=== PATIENT | male | born 1995 | race African-American/Black ===

== ENCOUNTER → 2017-04-26 | Outpatient (CLI) | payer OTHER ==
[~2017-04-26] MED LIST: CLON-352 PO; CLON0.1T PO; CLON0.2T PO; DHA PO; FISH1000 PO; MONT10TA4 PO; ROLACHW21 CHEW; TAB-TAB PO
[2017-04-26 12:32] LABS: AUTOMATED NEUTROPHIL # 2.8 TH/MM3 (1.8-7.7); BASOPHIL % 0.6 % (0.0-2.0); EOSINOPHIL # 0.1 TH/MM3 (0-0.4); EOSINOPHIL % 2.1 % (0.0-4.0); HEMATOCRIT 41.8 % (39.0-51.0); HEMO FLAGS DIFF FINAL; LYMPH % 29.7 % (9.0-44.0); LYMPHOCYTE # 1.4 TH/MM3 (1.0-4.8); MEAN CELL VOLUME 85.9 FL (80.0-100.0); MEAN CORPUSCULAR HEMOGLOBIN 28.8 PG (27.0-34.0); MEAN CORPUSCULAR HGB CONC 33.5 % (32.0-36.0); MONO % 9.6 % (0.0-8.0); PLATELET COUNT 246 TH/MM3 (150-450); RED BLOOD COUNT 4.87 MIL/MM3 (4.50-5.90); RED CELL DISTRIBUTION WIDTH 12.8 % (11.6-17.2); WHITE BLOOD COUNT 4.8 TH/MM3 (4.0-11.0)
[2017-04-26 12:56] LABS: ALT (GPT) 95 U/L (12-78); ANION GAP 6 MEQ/L (5-15); AST (GOT) 27 U/L (15-37); BICARBONATE 28.2 MEQ/L (21.0-32.0); BLOOD UREA NITROGEN 13 MG/DL (7-18); CHLORIDE 104 MEQ/L (98-107); GLOMERULAR FILTRATION RATE 109 ML/MIN (>89); GLUCOSE,FASTING 80 MG/DL (74-99); POTASSIUM 3.7 MEQ/L (3.5-5.1); SODIUM (NA) 138 MEQ/L (136-145)
[2017-04-26 13:06] LABS: ALKALINE PHOSPHATASE 100 U/L (45-117); HDL CHOLESTEROL 58.2 MG/DL (40.0-60.0); LDL CHOLESTEROL 59 MG/DL (0-99); TOTAL BILIRUBIN ADULT 0.5 MG/DL (0.2-1.0)
[2017-04-26 13:33] LABS: BLOOD, URINE NEG (NEG); COMMENT (UR) CULT NOT INDICATED; CULTURE IF INDICATED CULT NOT INDICATED; GLUCOSE,URINE NEG (NEG); KETONE, URINE NEG (NEG); MUCUS URINE FEW /lpf (OCC); NITRITE,URINE NEG (NEG); URINE COLOR YELLOW (YELLW/STRAW)
== END ==
LOC: CLAB 11:46
PROVIDERS: ATTEND Internal Medicine
DX: E78.00 Pure hypercholesterolemia, unspecified (principal); I10 Essential (primary) hypertension; R73.01 Impaired fasting glucose; Z12.5 Encounter for screening for malignant neoplasm of prostate
CPT/HCPCS: 36415; 80053; 80061; 81001; 84443; 85025

== ENCOUNTER 2017-05-28 20:41 | Emergency (ER) | payer OTHER ==
[~2017-05-28] VITALS: Ht 177.8 cm; Wt 80.0 kg
[~2017-05-28 20:41] MED LIST changes: -CLON0.1T PO; -MONT10TA4 PO
[2017-05-28 20:42] VITALS: BP 117/73; PULSE 68; RESP 16; TEMP 98.5; O2SAT 96
[2017-05-28] MEDS ORDERED: MONT10TA4 PO (21:39)
[2017-05-28] MEDS ORDERED: CLON0.1T PO (21:39)
[2017-05-28 21:40] VITALS: BP 122/62; PULSE 69; RESP 21; O2SAT 98
--- NOTE | 2017-05-28 21:49 | PD ---
HPI Chief Complaint: Seizure Time Seen by Provider: 21:47 Travel History International Travel<30 days: No Contact w/Intl Traveler<30days: No Traveled to known affect area: No History of Present Illness HPI 21-year-old male with history of autism, one previous seizure about 10 years ago , presents to the ER today because mom states that he had a seizure that was witnessed by his brother. He had a short post ictal phase and is back to normal mental status according to mom. He currently denies any issues, pains, injuries, or any other symptoms. Modifying Factors: None Associated Signs & Symptoms: Seizure Risk Factors: One previous seizure episode PFSH Past Medical History Asthma: Yes Depression: Yes Cardiovascular Problems: No Developmental Delay: Yes (autistic) Diminished Hearing: No Genitourinary: No Medical other: Yes (SPEECH DISORDER) Neurologic: Yes ([facility]) Respiratory: Yes Immunizations Current: Yes Sickle Cell Disease: No Past Surgical History Oral Surgery: Yes (WISDOM TEETH REMOVED) Social History Alcohol Use: No Tobacco Use: No Substance Use: No Allergies-Medications (Allergen,Severity, Reaction): Coded Allergies: aluminum (Unverified Allergy, Severe, RASH, 05/28/17) amoxicillin (Unverified Allergy, Severe, Rash, 05/28/17) penicillin G (Unverified Allergy, Severe, ITCHY RASH, 05/28/17) Uncoded Allergies: OMNICEF (Allergy, Severe, RASH, 08/13/08) APPLE JUICE (Allergy, Mild, FOOD INTOLERANCE, 09/13/05) Reported Meds & Prescriptions Reported Meds & Active Scripts Active Reported Montelukast (Montelukast Sodium) 10 Mg Tab 10 Mg PO HS Clonidine (Clonidine HCl) 0.1 Mg Tab 0.1 Mg PO TID Review of Systems Except as stated in HPI: all other systems reviewed are Neg Physical Exam Narrative GENERAL: Well-developed young -[place] male patient currently in mild distress. Awake and oriented 3. SKIN: Focused skin assessment warm/dry. HEAD: Atraumatic. Normocephalic. EYES: Pupils equal and round. No scleral icterus. No injection or drainage. ENT: No nasal bleeding or discharge. Mucous membranes pink and moist. NECK: Trachea midline. No JVD. CARDIOVASCULAR: Regular rate and rhythm. No murmur appreciated. RESPIRATORY: No accessory muscle use. Clear to auscultation. Breath sounds equal bilaterally. GASTROINTESTINAL: Abdomen soft, non-tender, nondistended. Hepatic and splenic margins not palpable. MUSCULOSKELETAL: No obvious deformities. No clubbing. No cyanosis. No edema. NEUROLOGICAL: Awake and alert. No obvious cranial nerve deficits. Motor grossly within normal limits. Normal speech. PSYCHIATRIC: Appropriate mood and affect; insight and judgment normal. Data Data Last Documented VS Vital Signs Date Time Temp Pulse Resp B/P (MAP) Pulse Ox O2 Delivery O2 Flow Rate FiO2 05/28/17 22:08 99 Room Air 05/28/17 21:40 69 21 05/28/17 20:42 98.5 Orders Orders Complete Blood Count With Diff (05/28/17 21:47) Electrocardiogram (05/28/17 ) Ct Brain W/O Iv Contrast(Rout) (05/28/17 ) Blood Glucose (05/28/17 21:47) Ecg Monitoring (05/28/17 21:47) Iv Access Insert/Monitor (05/28/17 21:47) Oximetry (05/28/17 21:47) Comprehensive Metabolic Panel (05/28/17 21:47) Sodium Chloride 0.9% Flush (Ns Flush) (05/28/17 22:00) Labs Laboratory Tests Test 05/28/17 22:03 White Blood Count 6.8 TH/MM3 Red Blood Count 4.82 MIL/MM3 Hemoglobin 13.7 GM/DL Hematocrit 42.0 % Mean Corpuscular Volume 87.0 FL Mean Corpuscular Hemoglobin 28.4 PG Mean Corpuscular Hemoglobin Concent 32.7 % Red Cell Distribution Width 13.1 % Platelet Count 233 TH/MM3 Mean Platelet Volume 9.0 FL Neutrophils (%) (Auto) 64.1 % Lymphocytes (%) (Auto) 25.4 % Monocytes (%) (Auto) 8.4 % Eosinophils (%) (Auto) 1.6 % Basophils (%) (Auto) 0.5 % Neutrophils # (Auto) 4.4 TH/MM3 Lymphocytes # (Auto) 1.7 TH/MM3 Monocytes # (Auto) 0.6 TH/MM3 Eosinophils # (Auto) 0.1 TH/MM3 Basophils # (Auto) 0.0 TH/MM3 CBC Comment DIFF FINAL Differential Comment Blood Urea Nitrogen 15 MG/DL Creatinine 0.96 MG/DL Random Glucose 85 MG/DL Total Protein 7.6 GM/DL Albumin 4.0 GM/DL Calcium Level 8.6 MG/DL Alkaline Phosphatase 97 U/L Aspartate Amino Transf (AST/SGOT) 16 U/L Alanine Aminotransferase (ALT/SGPT) 25 U/L Total Bilirubin 0.2 MG/DL Sodium Level 138 MEQ/L Potassium Level 3.6 MEQ/L Chloride Level 104 MEQ/L Carbon Dioxide Level 28.7 MEQ/L Anion Gap 5 MEQ/L Estimat Glomerular Filtration Rate 120 ML/MIN MDM Medical Decision Making Medical Screen Exam Complete: Yes Emergency Medical Condition: Yes Medical Record Reviewed: Yes Interpretation(s) Laboratory Tests Test 05/28/17 22:03 Monocytes (%) (Auto) 8.4 % (0.0-8.0) Last [address] 05/28/17 0000 Signed Impressions: Service Date/Time: Tuesday, May 28, 2017 22:07 - CONCLUSION: Normal examination. Richardson Chisholm MD Differential Diagnosis Seizure episode: Rule out metabolic issues versus intracranial processes versus breakthrough seizure/epilepsy Narrative Course Vital signs are stable in the ER. CAT scan did not show any signs of acute intracranial processes and lab work was otherwise unremarkable. At this point, patient is back to normal mental status according to mom. It appears that this is a second seizure, has previous history of seizure although is not on any medications because he has not had any further seizures. Mother also has epilepsy. He apparently has had full workup of his seizure at [facility] last time. At this point, my plan would be to release him with follow-up to primary care physician and neurology. Return for any worsening in symptoms, new issues as needed. The plan was discussed with mom and she states understanding. Diagnosis Primary Impression: Seizure Disposition: 01 DISCHARGE HOME Condition: Stable Glenys Callahan MD May 28, 2017 21:49
[2017-05-28] MEDS ORDERED: SODIUM CHLORIDE 0.9% FLUSH 10 ML FLUSH IVF PRN (22:00)
[2017-05-28 22:08] VITALS: O2SAT 99
--- NOTE | 2017-05-28 22:19 | RADRPT ---
EXAM DATE/TIME: 05/28/2017 22:07 [place] COMPARISON: CT BRAIN W/O CONTRAST, August 13, 2008, 13:59. INDICATIONS : Syncope. Possible seizure. RADIATION DOSE: 39.03 CTDIvol (mGy) MEDICAL HISTORY : None SURGICAL HISTORY : None. ENCOUNTER: Initial ACUITY: 1 day PAIN SCALE: 0/10 LOCATION: cranial TECHNIQUE: Multiple contiguous axial images were obtained of the head. Using automated exposure control and adj ustment of the mA and/or kV according to patient size, radiation dose was kept as low as reasonably a chievable to obtain optimal diagnostic quality images. DICOM format image data is available electro nically for review and comparison. FINDINGS: CEREBRUM: The ventricles are normal for age. No evidence of midline shift, mass lesion, hemorrhage or acute in farction. No extra-axial fluid collections are seen. POSTERIOR FOSSA: The cerebellum and brainstem are intact. The 4th ventricle is midline. The cerebellopontine angle i s unremarkable. EXTRACRANIAL: The visualized portion of the orbits is intact. SKULL: The calvaria is intact. No evidence of skull fracture. CONCLUSION: Normal examination. Richardson Chisholm MD on May 28, 2017 at 22:17 Board Certified Radiologist. This report was verified electronically.
[2017-05-28 22:20] LABS: AUTOMATED NEUTROPHIL # 4.4 TH/MM3 (1.8-7.7); BASOPHIL % 0.5 % (0.0-2.0); EOSINOPHIL # 0.1 TH/MM3 (0-0.4); EOSINOPHIL % 1.6 % (0.0-4.0); HEMO FLAGS DIFF FINAL; LYMPH % 25.4 % (9.0-44.0); LYMPHOCYTE # 1.7 TH/MM3 (1.0-4.8); MEAN CORPUSCULAR HEMOGLOBIN 28.4 PG (27.0-34.0); MEAN CORPUSCULAR HGB CONC 32.7 % (32.0-36.0); MONO % 8.4 % (0.0-8.0); NEUT % 64.1 % (16.0-70.0); PLATELET COUNT 233 TH/MM3 (150-450); RED BLOOD COUNT 4.82 MIL/MM3 (4.50-5.90); RED CELL DISTRIBUTION WIDTH 13.1 % (11.6-17.2); WHITE BLOOD COUNT 6.8 TH/MM3 (4.0-11.0)
[2017-05-28 22:35] LABS: ANION GAP 5 MEQ/L (5-15); AST (GOT) 16 U/L (15-37); BICARBONATE 28.7 MEQ/L (21.0-32.0); BLOOD UREA NITROGEN 15 MG/DL (7-18); CHLORIDE 104 MEQ/L (98-107); GLOMERULAR FILTRATION RATE 120 ML/MIN (>89); POTASSIUM 3.6 MEQ/L (3.5-5.1); SODIUM (NA) 138 MEQ/L (136-145)
[2017-05-28 22:40] LABS: ALKALINE PHOSPHATASE 97 U/L (45-117); ALT (GPT) 25 U/L (12-78); TOTAL BILIRUBIN ADULT 0.2 MG/DL (0.2-1.0)
--- NOTE | 2017-05-29 13:03 | EKG ---
Date Performed: 05/28/2017 Time Performed: 22:01:33 PTAGE: 21 years EKG: Sinus rhythm NONSPECIFIC T-WAVE ABNORMALITY BORDERLINE ECG PREVIOUS TRACING : 08/13/2008 15.36 DOCTOR: Anderson Wall Interpretating Date/Time 05/29/2017 12:59:05
== END 2017-05-28 23:07 | disposition home or self-care (01) ==
LOC: NEPE 20:41
DX: R56.9 Unspecified convulsions (principal); R94.31 Abnormal electrocardiogram [ECG] [EKG]; F84.0 Autistic disorder
CPT/HCPCS: 70450; 80053; 85025; 93005